=== PATIENT | male | born 1985 | race Two or more races ===

== ENCOUNTER 2025-01-04 17:59 | Emergency (ER) | payer OTHER ==
[~2025-01-04] VITALS: Ht 167.6 cm; Wt 77.3 kg
[2025-01-04 18:59] LABS: COVID AG,FIA SOURCE NASAL SWAB
[2025-01-04 19:09] LABS: INFLUENZA TYPE A NEGATIVE FOR TYPE A (NEGATIVE); SARS-COV2 (COVID) ANTIGEN,FIA Negative (Negative)
[2025-01-04 19:18] LABS: INFLUENZA TYPE B POSITIVE FOR TYPE B (NEGATIVE)
[2025-01-04 19:44] VITALS: BP 129/86; PULSE 80; RESP 16; TEMP 99.5; O2SAT 98
[2025-01-04] MEDS ORDERED: OSEL75CA45 PO (19:51)
[2025-01-04] MEDS ORDERED: ONDA-104 PO (19:51)
[2025-01-04] MEDS: ONDANSETRON 4 MG RAPDIS TABLET PO ONE (20:04)
[2025-01-04] MEDS: OSELTAMIVIR PHOSPHATE 75 MG CAPSULE PO ONE (20:04)
== END 2025-01-04 20:07 | disposition home or self-care (01) ==
LOC: EMS 18:00
DX: J10.1 Influenza due to other identified influenza virus with other respiratory manifestations (principal); F17.210 Nicotine dependence, cigarettes, uncomplicated; Z88.0 Allergy status to penicillin; Z20.822 Contact with and (suspected) exposure to COVID-19
CPT/HCPCS: 99283; 87426; 87804; Q0162